=== PATIENT | male | born 1950 | race Caucasian/White ===

== ENCOUNTER 2023-02-03 15:41 | Emergency (ER) | payer OTHER, MEDICARE ==
[~2023-02-03] VITALS: Ht 177.8 cm; Wt 78.2 kg
[2023-02-03 15:48] VITALS: BP 151/78; PULSE 77; RESP 18; TEMP 96.4; O2SAT 99
[2023-02-03] MEDS ORDERED: magnesium oxide 400mg tablet PO ONE (16:40)
[2023-02-03] MEDS ORDERED: POTASSIUM BICARB 20meq eff tab 20 MEQ TABLET.EFF PO ONE (16:40)
[2023-02-03] MEDS ORDERED: calcium carbonate 500mg tablet PO ONE (16:45)
[2023-02-03] MEDS ORDERED: OSC500T PO (17:15)
[2023-02-03] MEDS ORDERED: MAGN200T8 PO (17:15)
[2023-02-03] MEDS ORDERED: POTA-207 PO (17:15)
== END 2023-02-03 17:30 | disposition home or self-care (01) ==
LOC: ER 15:42
DX: E87.6 Hypokalemia (principal); E83.51 Hypocalcemia; F17.200 Nicotine dependence, unspecified, uncomplicated; Z88.0 Allergy status to penicillin; Z88.4 Allergy status to anesthetic agent; Z79.899 Other long term (current) drug therapy
CPT/HCPCS: 93005; 99284